=== PATIENT | female | born 1960 | race African-American/Black ===

== ENCOUNTER 2016-05-30 09:02 | Emergency (ER) | payer OTHER ==
[~2016-05-30] VITALS: Ht 162.6 cm; Wt 142.0 kg
[~2016-05-30 09:02] MED LIST: MOTRIN600 MG PO
[2016-05-30] MEDS ORDERED: FLEXERIL10 MG PO (09:36)
[2016-05-30 09:51] VITALS: BP 163/69
== END 2016-05-30 09:53 | disposition home or self-care (01) ==
LOC: EME 09:02
DX: S16.1XXA Strain of muscle, fascia and tendon at neck level, initial encounter (principal); V49.50XA Passenger injured in collision with unspecified motor vehicles in traffic accident, initial encounter
CPT/HCPCS: 99281; 99284